=== PATIENT | male | born 1935 | race Hispanic/Latino ===

== ENCOUNTER 2017-04-01 07:08 | Day surgery (SDC) | payer MEDICARE ==
[2017-03-23 11:22] VITALS: BMI 27.3
[~2017-04-01 07:08] MED LIST: Ciprofloxacin 0.3% OPTH SOLN OD SCH; Flurbiprofen 0.03% Opht SOLN OD SCH; Lactated Ringer's 500 ML IV ONE; Phenylephrine 2.5% Opht Soln OD SCH; Tropicamide 1% Opht SOLUTION OD SCH; acetaZOLAMIDE 500 mg SR Cap PO ONE
[2017-04-01] MEDS ORDERED: Carbachol 0.01% IO ONE (07:38)
[2017-04-01] MEDS ORDERED: Povidone Iodine Ophthalmic 5% Soln ONE (07:38)
[2017-04-01] MEDS ORDERED: Tetracaine 0.5% Ophth (OR ONLY) ONE (07:39)
[2017-04-01] MEDS ORDERED: Tobramycin/Dexamethasone OPHT OINT ONE (07:39)
[2017-04-01] MEDS ORDERED: Hyaluronidase Human, Recombi 150 U/ML VIAL ONE (07:39)
[2017-04-01] MEDS ORDERED: Chondroitin/Hyaluronate Opth Syringe KIT (0.55 ml-0.5 ml) IO ONE (07:39)
[2017-04-01] MEDS ORDERED: Lidocaine 2% Inj (20ml) ONE (07:39)
[2017-04-01] MEDS ORDERED: Lactated Ringer's 500 ML IV ONE (08:30)
[2017-04-01] MEDS ORDERED: Chondroitin/Hyaluronate 40 mg/ml-30 mg/ml Ophth Syringe (0.5 ml) IO ONE (11:12)
[2017-04-01] MEDS ORDERED: Midazolam 2 MG/2 ML VIAL ONE (11:16)
[2017-04-01 11:54] VITALS: O2SAT 95
[2017-04-01] MEDS ORDERED: acetaZOLAMIDE 500 mg SR Cap PO ONE (12:00)
[2017-04-01 12:17] VITALS: BP 155/71; PULSE 61; RESP 17; TEMP 97.8
--- NOTE | 2017-04-01 19:05 | OP ---
PROCEDURE DATE: 04/01/2017 PREOPERATIVE DIAGNOSIS: Mature cataract, right eye. POSTOPERATIVE DIAGNOSIS: Mature cataract, right eye. PROCEDURE: Phacoemulsification, right eye; insertion of posterior chamber implant. SURGEON: Meng Barrios MD. CO-SURGEON: Dr. Lucio. TYPE OF ANESTHESIA: Local IV sedation. PROCEDURE: The patient was brought into the operating room, placed in supine position, prepped and draped in the usual fashion for ophthalmic surgery. Lid speculum was inserted, lids and exposing globe. A side-port incision was made superiorly and inferiorly with a disposable sharp blade. Anterior chamber was filled with Viscoat. A near clear corneal incision was made temporally with a 2.75-mm keratome. Capsulorrhexis was then performed with Utrata forceps. Hydrodissection carried out with balanced salt solution. Nucleus was phacoemulsified. Remaining cortical fragments were removed with a split irrigation and aspiration system. The capsular sac was filled with Provisc. A posterior chamber lens was then injected into the capsular sac and rotated into horizontal position. Provisc was aspirated out of the anterior chamber. The pupil was constricted with Miochol. The wound was found to be watertight. Topical Betadine, Timoptic, and TobraDex ointment and pressure patch were applied. The patient tolerated the procedure well. Meng Barrios MD
== END 2017-04-01 12:25 | disposition home or self-care (01) ==
LOC: C.SDS 07:08
PROVIDERS: ATTEND Ophthalmology
DX: H25.11 Age-related nuclear cataract, right eye (principal); H26.9 Unspecified cataract
CPT/HCPCS: 66984; 82948; J2250; J3010; J3470; J7120